=== PATIENT | female | born 1990 | race African-American/Black ===

== ENCOUNTER → 2017-06-29 | Outpatient (CLI) | payer OTHER ==
[2012-04-02 09:01] VITALS: BP 106/69
--- NOTE | 2017-06-29 11:39 | RAD ---
Examination: Right shoulder, three views History: Shoulder and neck pain Findings: There is no evidence for fracture, dislocation, bone destruction or pathologic soft tissue calcification. The humeral head is in normal position with the glenoid. Impression: No acute or significant findings right shoulder. Reported By:
--- NOTE | 2017-06-29 11:44 | RAD ---
Examination: Cervical spine, 6 views History: Shoulder and neck pain Findings: There is straightening of the normal cervical curvature. Otherwise, normal appearance of ve rtebrae, disc spaces and prevertebral soft tissues. The neural foramina are intact. There are bilater al cervical ribs, left larger than right. The odontoid process is not well demonstrated on the availa ble frontal views. Impression: 1. Alteration in cervical curvature may reflect neck pain or muscle spasm. 2. Incomplete frontal evaluation of the atlantoaxial complex 3. Bilateral cervical ribs. Reported By:
== END ==
LOC: RAD 09:39
PROVIDERS: ATTEND Nurse Practitioner Family
DX: M25.511 Pain in right shoulder (principal); M54.2 Cervicalgia
CPT/HCPCS: 72050; 73030

== ENCOUNTER 2017-07-20 21:47 | Emergency (ER) | payer OTHER ==
[2017-07-20 21:58] VITALS: BP 115/71; BMI 17.7
--- NOTE | 2017-07-20 22:19 | DR.GENAD ---
HPI - PCP Primary Care Physician: Boris - Complaint/Symptoms Chief Complaint:: It hurts when I take in deep breaths and I also noted a knot on my right chest. All symptoms started today. 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 Past Surgical History Comment: Tubaligation 2012 - Family History History of Family Medical Conditions: Yes Family Medical History: Diabetes Mellitus Family Medical History Comment: Aunt is diabetic - Social History Does patient currently use any type of tobacco product: No Have you used tobacco products in the last 12 months: No Type of Tobacco Use: None Does any household member use tobacco: No Alcohol Use: None Do you use any recreational Drugs:: No Lives With: Alone Lives Where: Home - infectious screening In the last 2 months have you had wt loss of >10#?: NO Have you had fever, night sweats or hemotysis?: No Have you traveled outside the country in the last 6 months?: No Isolation: Standard ROS - Review of Systems Constitutional: No Symptoms Reported Eyes: No Symptoms Reported ENTM: No Symptoms Reported Respiratoy: No Symptoms Reported Cardiovascular: No Symptoms Reported Gastrointestinal/Abdominal: No Symptoms Reported Genitourinary: No Symptoms Reported Neurological: No Symptoms Reported Musculoskeletal: No Symptoms Reported Integumentary: Lumps (on right chest wall) Hematologic/Lymphatic: No Symptoms Reported Endocrine: No Symptoms Reported Psychiatric: No Symptoms Reported All Other Systems: Reviewed and Negative PE - Vital Signs Vitals: Temperature 98.1 F Pulse Rate 94 Blood Pressure 115/71 O2 Sat by Pulse Oximetry 100 - General Limitations: No Limitations General Appearance: Alert, In No Apparent Distress - Head Head Exam: Normal Inspection - Eyes Eye exam: Normal Appearance - ENT ENT Exam: Normal Exam - Neck Neck Exam: Normal Inspection - Chest Chest Inspection: Normal Inspection, Symmetric Chest Wall Rise - Respiratory Respiratory Exam: Normal Lung Sounds Bilat - Cardiovascular Cardiovascular Exam: Regular Rate, Normal Rhythm, +S1, +S2 - Abdominal Exam Abdominal Exam: Normal Inspection, Normal Bowel Sounds, Soft - Extremities Extremities Exam: Normal Inspection - Back Back Exam: Normal Inspection - Neurologic Neurological Exam: Alert, Oriented X3 - Psychiatric Psychiatric Exam: Normal Affect, Normal Mood - Skin Skin Exam: Warm, Dry, Intact, Normal Color, Other (small sub-cutaneous nodule by the rt. 3rd intercoastal space (mid-clavicular). It is not fixed and is non- tender.) ROR - XRAY XRAY Interpreted by: Self (CXR: hyperinflated lungs, otherwise a normal study.) - Diagnosis Discharge Problem: Pleuritic pain - Discharge Plan Disposition: 01 HOME, SELF-CARE Condition: Stable - Follow ups/Referrals Follow ups/Referrals: AZUL HARRIS [Primary Care Provider] - 3 days - Instructions Instructions: Chest Wall Pain
--- NOTE | 2017-07-20 22:55 | RAD ---
Chest, one view Indication: Chest pain Comparison: None Findings: Heart size is normal. No focal consolidation, significant effusion or pneumothorax is ident ified. There is no acute osseous abnormality. Impression: No acute cardiopulmonary abnormality. Reported By:
[2017-07-20] MEDS ORDERED: NAPROSYN PO ONE ×2 (23:02→23:04)
== END 2017-07-20 23:07 | disposition home or self-care (01) ==
LOC: ER 22:01
DX: R07.81 Pleurodynia (principal)
CPT/HCPCS: 71045; 99282